=== PATIENT | male | born 1995 | race Caucasian/White ===

== ENCOUNTER 2023-04-21 10:07 | Emergency (ER) | payer SELFPAY ==
[2023-04-21] MEDS ORDERED: Aspirin 81 MG Tab.Chew PO ONE (10:27)
[2023-04-21] MEDS ORDERED: Sodium Chloride 0.9% 1,000 ML IV SCH (10:30)
[2023-04-21 10:39] LABS: BASOPHILS PERCENT AUTO 0.4 % (0.3-3.8); EOSINOPHILS ABSOLUTE AUTO 0.1 x10-3/uL (0.0-0.6); EOSINOPHILS PERCENT AUTO 1.2 % (0.1-6.8); HEMOGLOBIN 15.1 g/dL (12.9-17.7); LYMPHOCYTES ABSOLUTE AUTO 2.6 x10-3/uL (0.5-4.5); LYMPHOCYTES PERCENT AUTO 37.8 % (15.8-45.3); MEAN CORPUSCULAR HEMOGLOBIN 29.9 pg (27.0-33.3); MEAN CORPUSCULAR HGB CONC 33.5 g/dL (28.7-35.3); MEAN CORPUSCULAR VOLUME 89.3 fL (80.8-98.7); MEAN PLATELET VOLUME 8.8 fL (6.7-11.0); MONOCYTES ABSOLUTE AUTO 0.6 x10-3/uL (0.0-1.2); MONOCYTES PERCENT AUTO 8.8 % (5.5-15.2); NEUTROPHILS ABSOLUTE AUTO 3.5 x10-3/uL (1.7-6.9); NEUTROPHILS PERCENT AUTO 51.8 % (40.3-71.8); PLATELET COUNT,PLT 214 x10(3)uL (117-477); RED BLOOD CELL COUNT 5.04 x10(6)uL (3.90-5.90); RED CELL DISTRIBUTION WIDTH 14.6 % (12.4-15.0); WHITE BLOOD CELL COUNT,WBC 6.8 x10-3/uL (3.2-10.1)
[2023-04-21] MEDS ORDERED: Sodium Chloride 0.9% 1,000 ML IV ONE (10:41)
[2023-04-21 10:43] LABS: BLOOD UREA NITROGEN,BUN 11 mg/dL (7-18); CALCIUM 9.5 mg/dL (8.6-10.2); CARBON DIOXIDE,CO2 28 mmol/L (21-32); CHLORIDE,CL 103 mmol/L (100-110); EST CRCL DRUG DOSING (CG) 136.23 mL/min; ESTIMATED GFR 106 mL/min (>60); GLUCOSE RANDOM 94 mg/dL (80-116); POTASSIUM,K 4.1 mmol/L (3.5-5.3); SODIUM,NA 140 mmol/L (135-145)
[2023-04-21 10:48] LABS: A/G RATIO 1.3; ALANINE AMINOTRANSFERASE,ALT 17 U/L (12-36); ALBUMIN 4.2 g/dL (3.5-5.2); ALKALINE PHOSPHATASE 65 IU/L (56-112); ASPARTATE AMNIOTRANSFERASE,AST 16 IU/L (5-25); BILIRUBIN TOTAL 1.3 mg/dL (0.1-1.3); CREATINE KINASE,CK 108 IU/L (60-160); PROTEIN TOTAL,TP 7.4 g/dL (6.0-8.0)
[2023-04-21 10:50] LABS: TROPONIN I 4.1 pg/mL (4.0-60.3)
[2023-04-21 10:53] LABS: C-REACTIVE PROTEIN < 0.2 mg/dL (0.5-0.9)
[2023-04-21] MEDS ORDERED: Ketorolac 30 MG/ML SDV IVPUSH ONE (10:59)
== END 2023-04-21 12:00 | disposition home or self-care (01) ==
LOC: FB.ED 10:07
DX: S29.011A Strain of muscle and tendon of front wall of thorax, initial encounter (principal); I95.1 Orthostatic hypotension; E86.0 Dehydration; B34.9 Viral infection, unspecified; Z20.822 Contact with and (suspected) exposure to COVID-19; X50.0XXA Overexertion from strenuous movement or load, initial encounter
CPT/HCPCS: 36415; 71045; 80053; 82550; 84484; 85025; 85379; 86140; 87635; 93005; 96361; 96374; 99285; A9270; J1885; J7030; U0002